=== PATIENT | male | born 1975 | race Two or more races ===

== ENCOUNTER 2019-10-22 14:37 | Emergency (ER) | payer SELFPAY ==
[~2019-10-22] VITALS: Ht 175.3 cm; Wt 97.7 kg
[2019-10-22 14:58] VITALS: BP 146/90; Ht 175.3 cm; Wt 97.7 kg
[2019-10-22] MEDS ORDERED: MUPIROCIN22 GM TOPICAL (15:20)
== END 2019-10-22 15:51 | disposition home or self-care (01) ==
LOC: D.ER 14:37
DX: S81.012A Laceration without foreign body, left knee, initial encounter (principal); W45.8XXA Other foreign body or object entering through skin, initial encounter; Y93.9 Activity, unspecified; Y92.9 Unspecified place or not applicable

== ENCOUNTER 2019-10-30 12:19 | Emergency (ER) | payer SELFPAY ==
[~2019-10-30] VITALS: Ht 175.3 cm; Wt 95.5 kg
[~2019-10-30 12:19] MED LIST: MUPIROCIN22 GM TOPICAL
[2019-10-30 12:46] VITALS: BP 122/89; Ht 175.3 cm; Wt 95.5 kg
== END 2019-10-30 14:10 | disposition left against medical advice (07) ==
LOC: D.ER 12:19
DX: Z48.02 Encounter for removal of sutures (principal)